=== PATIENT | male | born 1985 | race Caucasian/White ===

== ENCOUNTER 2016-06-18 10:22 | Outpatient (CLI) | payer OTHER | END 2016-06-18 10:23 | disposition home or self-care (01) | DX: R10.31 Right lower quadrant pain (principal) ==

== ENCOUNTER 2021-06-12 08:00 | Outpatient (CLI) | payer BC, OTHER ==
--- NOTE | 2021-06-12 19:03 | XRAY Report ---
PROCEDURE: Finger(s) RT INDICATIONS: CRUSHING INJURY OF RIGHT INDEX FINGER TECHNIQUE: AP hand, 3 views of the second finger(s) acquired. COMPARISON: None FINDINGS: Bones: Comminuted fractures involving distal portion of second distal phalanx is seen with minimal me dial displacement at fracture site. No suspicious bony lesions. Soft tissues: No suspicious soft tissue calcifications. IMPRESSION: Minimally displaced fracture involving second distal phalanx as above. Reviewed by: Wang Freeman MD on 06/12/2021 7:02 PM PDT Approved by: Wang Freeman MD on 06/12/2021 7:02 PM PDT Station ID: [id number]
--- NOTE | 2021-06-12 19:03 | XRAY Report ---
PROCEDURE: Tib/Fib RT INDICATIONS: CONTUSION OF RIGHT LOWER LEG TECHNIQUE: 2 views of the tibia and fibula were acquired. COMPARISON: None FINDINGS: Bones: No fractures or dislocations. Exostosis along medial cortex of proximal fibular shaft is seen likely represent old avulsion injury. No suspicious bony lesions. Soft tissues: No suspicious soft tissue calcifications or masses. IMPRESSION: No acute fracture or dislocation. No gross soft tissue abnormality. Possible old avulsion injury invo lving medial aspect of proximal fibular shaft. Reviewed by: Wang Freeman MD on 06/12/2021 7:01 PM PDT Approved by: Wang Freeman MD on 06/12/2021 7:01 PM PDT Station ID: [id number]
--- NOTE | 2021-06-12 19:04 | XRAY Report ---
PROCEDURE: Knee 3 View LT INDICATIONS: CONTUSION OF LEFT KNEE TECHNIQUE: 3 views of the left knee(s) were acquired. COMPARISON: None. FINDINGS: Bones: No fractures or dislocations. No suspicious bony lesions. No patellar subluxation. Soft tissues: No joint effusion. No suspicious soft tissue calcifications. IMPRESSION: No acute left knee fracture or dislocation. No joint effusion. Reviewed by: Wang Freeman MD on 06/12/2021 7:02 PM PDT Approved by: Wang Freeman MD on 06/12/2021 7:02 PM PDT Station ID: [id number]
== END 2021-06-12 23:59 | disposition home or self-care (01) ==
LOC: DI.S 08:00
PROVIDERS: ATTEND Physician Assistant Medical
DX: S62.630A Displaced fracture of distal phalanx of right index finger, initial encounter for closed fracture (principal); S80.02XA Contusion of left knee, initial encounter; S80.11XA Contusion of right lower leg, initial encounter